=== PATIENT | male | born 1960 | race Two or more races ===

== ENCOUNTER 2024-06-06 21:43 | Emergency (ER) | payer OTHER ==
[~2024-06-06] VITALS: Ht 180.3 cm; Wt 109.1 kg
[2024-06-06 21:51] VITALS: BP 159/113; RESP 18; O2SAT 96
[2024-06-06 21:53] VITALS: PULSE 51
[2024-06-06] MEDS ORDERED: MECLIZINE HCL 25 MG TAB PO ONE (22:00)
[2024-06-06] MEDS ORDERED: SODIUM CHLORIDE 0.9% 1,000 ML IV ONE (22:00)
--- NOTE | 2024-06-06 22:32 | ED.PDOC ---
HPI (NEURO) HPI Comments HPI: Poor Historian. 64-year-old male brought in by ambulance for episode of dizziness the associated nausea and vomiting. He describes the dizziness as vertigo we felt everything was spinning around him. Patient received some Zofran EN route by EMS. Denies any other acute symptoms. This never happened before. Denies any use of drugs. Denies any focal neurological deficits. Denies any acute numbness or tingling sensation. Past Medcial History: Hypertension, diabetes Past Surgical History: Denies any REVIEW OF SYSTEMS: CONSTITUTIONAL: Denies acute: fever, diaphoresis, chills, generalized weakness. HEAD: Denies acute: headache, photophobia Eyes: Denies acute: Double vision, vision loss, eye pain, eye discharge. EARS: Denies acute: tinnitus, hearing loss, ear discharge, ear pain, THROAT: Denies acute: sore throat, swelling, difficulty swallowing , pain with swallowing, change in voice. NECK: Denies acute: neck pain, neck swelling, stiff neck. HEART: Denies acute : chest pain, palpitations, LUNGS: Denies acute: SOB, wheezing, cough, hemoptysis ABDOMEN: Denies acute: abdominal pain, diarrhea, melena , hematemesis, hematochezia SKIN: Denies acute: rash, redness, lesions, itchiness. EXTREMITIES: Denies acute: calf pain, numbness, tingling, weakness, denies pain in extremity. Denies acute: Low back pain. Neuro: Denies acute: focal neurological deficit, motor or sensory focal neurological deficit, tremors, seizure like activity, confusion, change in mental status, loss of bowel or bladder function, cauda equina like symptoms. : Denies acute: dysuria, hematuria, flank pain, increase in urinary frequency. PSYCH: Denies acute: hallucination, suicidal ideation, homicidal ideation. FEMALE: Denies acute: abnormal vaginal bleeding, foul odor, unusual discharge. PHYSICAL EXAM: General: no acute distress, awake and alert. Head: normocephalic, atraumatic. Neck: supple, trachea is midline, no swelling. Throat: Normal phonation. Eyes:, no erythema, no purulent discharge, no proptosis, no icterus. Heart: regular rate, regular rhythm, no significant murmur appreciated. Lungs: no apparent respiratory distress, Able to speak in full sentences. No wheezing, no rhonchi, no crackles. No stridors Clear to auscultation bilaterally. Abdomen: non tender to palpation, non distended, soft, no guarding, no rebound, + bowel sounds. Neuro: Awake, Alert, oriented to name, self, situation, follows commands GCS=15. Speech is normal. Skin: no petechia, no purpura, no cyanosis, non-pale, not jaundice. Lower extremities: --no - Pitting edema no deformity, no focal swelling, no calf TTP. Makes eye contact. moves all four extremities. Face: no apparent facial droop. No CVA tenderness to percussion bilaterally. Ambulating in the ED independently. Ears: Normal appearing TM b/l, Stroke: finger to nose cerebellar testing is intact. No pronator drift. Symmetrical pedodontist muscle strength b/l PERRLA, EOM-I CN 2-12 are grossly intact, Pedal pulses are palpable. No nystagmus. No nuchal rigidity, Kernig's sign, Brudzinski's sign, no meningeal signs. Chief Complaint: Dizziness Time Seen by MD: 21:44 Reviewed Notes: Nurses Notes, Tutoring Clinician Notes, Medications, Allergies Information Source: Patient, Emergency Med Personnel Mode of Arrival: EMS X-Ray, Labs, Meds, VS Vital Signs Date Time Temp Pulse Resp B/P (MAP) Pulse Ox O2 Delivery O2 Flow Rate FiO2 06/06/24 21:53 51 06/06/24 21:51 97.5 56 18 159/113 (128) 96 NALLELY FISHMAN DO Jun 06, 2024 22:32
--- NOTE | 2024-06-07 08:46 | ECG ---
[facility] Test Date: 2024-06-06 Test Time: 21:53:41 Pat Name: IRENA BRADLEY Department: ED Room: Gender: M Vehicle Glass Technician: : 1960 Requested By: NALLELY FISHMAN Order Number: [id number] Reading MD: Jefry Rouse Measurements Intervals [place] Rate: 51 P: 3 IN: 156 QRS: 41 QRSD: 111 T: 51 QT: 521 QTc: 480 Interpretive Statements Sinus rhythm Abnormal R-wave progression, early transition Probable anterolateral infarct, old Minimal ST elevation, inferior leads Electronically Signed On 06-10-2024 12:36:47 PST by Jefry Rouse Please click the below link to view image of tracing.
== END 2024-06-06 23:12 | disposition left against medical advice (07) ==
LOC: ER 21:43 → EDBD 21:43 → EDSEX 21:43 → ER 22:05
DX: R42 Dizziness and giddiness (principal); R11.2 Nausea with vomiting, unspecified; I10 Essential (primary) hypertension; E11.9 Type 2 diabetes mellitus without complications
CPT/HCPCS: 93005